=== PATIENT | male | born 1980 | race Caucasian/White ===

== ENCOUNTER 2023-12-25 07:03 | Day surgery (SDC) | payer OTHER ==
[2023-12-19 12:21] VITALS: BMI 27.3
[2023-12-25] MEDS ORDERED: PROMETHAZINE HCL 25 MG/1 ML VIAL IVPB PRN (07:24)
[2023-12-25] MEDS ORDERED: ONDANSETRON 4 MG/2 ML VIAL IVPUSH PRN (07:24)
[2023-12-25] MEDS ORDERED: LACTATED RINGERS SOLUTION 1,000 ML IV SCH (07:30)
[2023-12-25] MEDS ORDERED: BUPIVACAINE HCL/EPINEPHRINE/PF 30 ML VIAL IJ ONE (07:37)
[2023-12-25] MEDS ORDERED: BUPIVACAINE HCL/PF 0.25% (2.5MG/ML) 10 ML VIAL ONE (07:38)
[2023-12-25] MEDS ORDERED: MIDAZOLAM HCL 2 MG/2 ML SINGLE DOSE VIAL ONE ×2 (08:29→08:45)
[2023-12-25] MEDS ORDERED: PROPOFOL 20 ML ONE (08:29)
[2023-12-25] MEDS ORDERED: oxyCODONE HCL 5 MG TABLET ONE (10:01)
[2023-12-25] MEDS: oxyCODONE HCL 5 MG TABLET PO PRN (10:03)
[2023-12-25 10:41] VITALS: TEMP 97.2
[2023-12-25 11:00] VITALS: BP 111/78; PULSE 64; RESP 17
== END 2023-12-25 11:02 | disposition home or self-care (01) ==
LOC: FASU 07:03
PROVIDERS: ATTEND Orthopaedic Surgery
PROC: 0SQD4ZZ Repair Left Knee Joint, Percutaneous Endoscopic Approach (ICD-10-PCS; principal; 2023-12-25 08:46)
DX: S83.212A Bucket-handle tear of medial meniscus, current injury, left knee, initial encounter (principal); X58.XXXA Exposure to other specified factors, initial encounter; Y92.9 Unspecified place or not applicable; Y93.9 Activity, unspecified
CPT/HCPCS: 94760; C1713